=== PATIENT | female | born 1960 | race Asian ===

== ENCOUNTER 2020-04-12 10:08 | Emergency (ER) | payer OTHER ==
--- NOTE | 2020-04-12 10:29 | EDM.PDOC ---
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 The patient was stepping over some sticks when she slipped and fell on the rocks. The patient reports hearing a "pop" during the incident. The patient reports she is experiencing pain at a 8/10. Onset: Today Duration: Minutes:, Constant Location: Reports: Upper Extremity, Right Quality: Reports: Ache, Sharp, Stabbing Severity: Moderate Improves with: Reports: None Worsens with: Reports: None Context: Reports: Other Associated Symptoms: Reports: No Other Symptoms Right Wrist Pain Score (Numeric/FACES): 8 - Related Data Allergies Allergy/AdvReac Type Severity Reaction Status Date / Time No Known Allergies Allergy Verified 04/12/20 10:17 Home Meds: Home Meds . [No Known Home Meds] 04/12/20 [History] Review of Systems - Review of Systems Review Of Systems: Comprehensive ROS is negative, except as noted in HPI. ED EXAM, GENERAL - Physical Exam Exam: See Below Exam Limited By: No Limitations General Appearance: Alert, WD/WN, Moderate Distress Eye Exam: Bilateral Eye: EOMI, Normal Inspection, PERRL Ears: Normal External Exam, Normal Canal, Hearing Grossly Normal, Normal TMs Nose: Normal Inspection, Normal Mucosa, No Blood Throat/Mouth: Normal Inspection, Normal Lips, Normal Teeth, Normal Gums, Normal Oropharynx, Normal Voice, No Airway Compromise Head: Atraumatic, Normocephalic Neck: Normal Inspection, Supple, Non-Tender, Full Range of Motion Respiratory/Chest: No Respiratory Distress, Lungs Clear, Normal Breath Sounds, No Accessory Muscle Use, Chest Non-Tender Cardiovascular: Normal Peripheral Pulses, Regular Rate, Rhythm, No Edema, No Gallop, No JVD, No Murmur, No Rub GI/Abdominal: Normal Bowel Sounds, Soft, Non-Tender, No Organomegaly, No Distention, No Abnormal Bruit, No Mass (Female) Exam: Deferred Rectal (Female) Exam: Deferred Back Exam: Normal Inspection, Full Range of Motion, NT Extremities: Arm Pain (right wrist pain with swelling) Neurological: Alert, Oriented, CN II-XII Intact, Normal Cognition, Normal Gait, Normal Reflexes, No Motor/Sensory Deficits Psychiatric: Normal Affect, Normal Mood Skin Exam: Warm, Dry, Intact, Normal Color, No Rash Lymphatic: No Adenopathy ED TRAUMA EXTREMITY PROCEDURES - Splinting Right Upper Extremity Pre-Procedure NV Status: Normal Post-Procedure NV Status: Normal Splint Material: Fiberglass Splint Design: Volar Applied & Form Fitted By: Provider Provider Post-Splint Application NV Check: NV Status Normal Complications: No Course - Vital Signs Last Recorded V/S: Last Vital Signs Temp 36.4 C 04/12/20 10:10 Pulse 63 04/12/20 10:10 Resp 16 04/12/20 10:10 BP 131/63 04/12/20 10:10 Pulse Ox 100 04/12/20 10:10 - Orders/Labs/Meds Orders: Active Orders 24 hr Category Date Time Status Wrist Comp Min 3V Rt [CR] Urgent Exams 04/12/20 10:15 Ordered Acetaminophen/HYDROcodone [[place] 325-5 MG] Med 04/12/20 10:59 Once 1 tab PO ONETIME ONE Meds: Medications Discontinued Medications Generic Name Dose Route Start Last Admin Trade Name Freq PRN Reason Stop Dose Admin Hydrocodone Bitart/Acetaminophen 1 tab 04/12/20 10:59 [place] 325-5 Mg PO 04/12/20 11:00 ONETIME ONE Departure - Departure Time of Disposition: 11:01 Disposition: Home, Self-Care 01 Condition: Fair Clinical Impression: Fracture of right distal radius Qualifiers: Encounter type: initial encounter Fracture type: closed Fracture morphology: unspecified fracture morphology Qualified Code(s): S52.501A - Unspecified fracture of the lower end of right radius, initial encounter for closed fracture - Discharge Information *PRESCRIPTION DRUG MONITORING PROGRAM REVIEWED*: Not Applicable *COPY OF PRESCRIPTION DRUG MONITORING REPORT IN PATIENT JOSÉ ANTONIO: Not Applicable Instructions: Wrist Fracture Treated With Immobilization, [id number], Cast or Splint Care, Adult, [id number] Forms: ED Department Discharge Care Plan Goals: The patient was advised of the examination and x-ray results during the visit. The patient was placed in a fiberglass splint, given a shoulder immobilizer and given an oral dose of [place] (5/325) while in the ED. The patient was encouraged to rest, ice and elevate the extremity. The patient should follow-up with an youth specialist or her primary care facility in about a week for continued evaluation and treatment. The patient was discharged with a script for [place] (5/325) #10 to take 1 by mouth every 6 hours as needed for pain. If the patient has any additional symptoms or concerns, the patient should either return to the emergency department or visit her primary care facility. Sepsis Event Note (ED) - Evaluation Sepsis Screening Result: No Definite Risk - Focused Exam Vital Signs: Vital Signs Temp Pulse Resp BP Pulse Ox 04/12/20 10:10 36.4 C 63 16 131/63 100 - My Orders Last 24 Hours: My Active Orders 04/12/20 10:15 Wrist Comp Min 3V Rt [CR] Urgent 04/12/20 10:59 Acetaminophen/HYDROcodone [[place] 325-5 MG] 1 tab PO ONETIME ONE - Assessment/Plan Last 24 Hours: My Active Orders 04/12/20 10:15 Wrist Comp Min 3V Rt [CR] Urgent 04/12/20 10:59 Acetaminophen/HYDROcodone [[place] 325-5 MG] 1 tab PO ONETIME ONE
[2020-04-12] MEDS ORDERED: Acetaminophen/HYDROcodone 325-5 MG Tab PO ONE (10:59)
--- NOTE | 2020-04-12 11:01 | CR ---
PROCEDURE INFORMATION: Exam: XR Right Wrist Exam date and time: 04/12/2020 10:17 AM Age: 59 years old Clinical indication: Other: Fell on rocks right wrist pain "felt pop"; Additional info: Fell on rocks right wrist pain "felt pop" TECHNIQUE: Imaging protocol: XR Right wrist. Views: 3 or more views. COMPARISON: No relevant prior studies available. FINDINGS: Bones/joints: Comminuted , minimally displaced (1-2 mm) fracture of the distal right radius with intra-articular extension. Fracture also extends into the interosseous membrane between the radius and ulna. No additional fractures are noted. Soft tissues: Soft tissue swelling. IMPRESSION: Comminuted , minimally displaced distal right radial fracture with intra-articular extension.
== END 2020-04-12 11:23 | disposition home or self-care (01) ==
LOC: DL.ED 10:08
DX: S52.571A Other intraarticular fracture of lower end of right radius, initial encounter for closed fracture (principal); W01.0XXA Fall on same level from slipping, tripping and stumbling without subsequent striking against object, initial encounter
CPT/HCPCS: 29125; 73110; 99283; A9270